=== PATIENT | female | born 1990 | race African-American/Black ===

== ENCOUNTER 2016-10-29 12:09 | Emergency (ER) | payer SELFPAY ==
[~2016-10-29] VITALS: Ht 157.5 cm; Wt 112.0 kg
[~2016-10-29 12:09] MED LIST: CIPR500T4 PO; GUAI100S6 PO; PRED20 PO; VENTAER INH
[2016-10-29 12:12] VITALS: BP 187/96; PULSE 49; RESP 20; TEMP 98; O2SAT 100
--- NOTE | 2016-10-29 12:19 | PD ---
Physical Exam Date Seen by Provider: October 29, 2016 Time Seen by Provider: 12:16 Narrative 25 yo female here for SOB. History of chronic asthma. Chest pain for the past few days, pain is pressure like and gets worst with breathing. Feeling hot with body aches. No N/V/D. Going on for a few days. Congestion and cough. Pain is 10/ 10. No abdominal pain. No . Vitals sign stable. Patient awaiting bed placement. Data Data Last Documented VS Vital Signs Date Time Temp Pulse Resp B/P Pulse Ox O2 Delivery O2 Flow Rate FiO2 10/29/16 12:12 98.0 49 20 187/96 100 MDM Medical Record Reviewed: Yes Supervised Visit with ROSE: No Gentry Long October 29, 2016 12:19
[2016-10-29] MEDS ORDERED: VENTAER INH ×2 (12:31→14:43)
--- NOTE | 2016-10-29 13:01 | PD ---
HPI Chief Complaint: Respiratory Symptoms Time Seen by Provider: 13:01 Travel History International Travel<30 days: No Contact w/Intl Traveler<30days: No Traveled to known affect area: No History of Present Illness HPI 25-year-old Afro-[place]aysian female presents the emergency department with increased productive cough, shortness of breath, and wheezing. Patient has history of asthma for which she has gone untreated secondary to insurance issues. Patient has not had any inhaler for several months. She states she has normal coughing and shortness of breath but today was much worse which brought her to the emergency department. She denies specific fever but does have chills. She has no headache, sore throat, but has had some ear pain today. No nausea, vomiting, or diarrhea. She does not have a local PCP or handkerchief cutter. She is allergic to Benadryl. PFSH Past Medical History Hx Anticoagulant Therapy: No Asthma: Yes Cardiovascular Problems: Yes (htn; [place]) Chemotherapy: No Cerebrovascular Accident: Yes Diabetes: No Respiratory: Yes (asthma) Tetanus Vaccination: > 5 Years Influenza Vaccination: No ?: Not LMP: 10/06/16 Past Surgical History Surgical History: No Previous Surgery Hysterectomy: No Social History Alcohol Use: Yes (occasional) Tobacco Use: Yes Substance Use: Yes (marijuana) Allergies-Medications (Allergen,Severity, Reaction): Coded Allergies: Benadryl (Verified Allergy, Severe, swelling, 10/29/16) Reported Meds & Prescriptions Reported Meds & Active Scripts Active Albuterol Neb (Albuterol Sulfate) 2.5 Mg/3 Ml Neb 2.5 Mg NEB QID NEB Prednisone 20 Mg Tab 20 Mg PO BID Azithromycin 250 Mg Tab 250 Mg PO DIRECTED Take 2 tabs (500 mg) on day 1 then 1 tab daily x 4 days. Ventolin Hfa 18 GM Inh (Albuterol Sulfate) 90 Mcg/Act Aer 2 Puff INH Q4-6H PRN Reported Ventolin Hfa 18 GM Inh (Albuterol Sulfate) 90 Mcg/Act Aer 2 Puff INH Q4H PRN Review of Systems Except as stated in HPI: all other systems reviewed are Neg General / Constitutional: Positive: Chills, No: Fever Eyes: No: Visual changes HENT: No: Headaches Cardiovascular: No: Chest Pain or Discomfort Respiratory: Positive: Cough, Shortness of Breath, Wheezing, No: Sneezing, Orthopnea, Hemoptysis, Night Sweats, Pleuritic Pain Gastrointestinal: No: Nausea, Vomiting, Diarrhea, Abdominal Pain Genitourinary: No: Dysuria Musculoskeletal: No: Pain Skin: No Rash Neurologic: No: Weakness Psychiatric: No: Depression Endocrine: No: Polydipsia Hematologic/Lymphatic: No: Easy Bruising Physical Exam Narrative GENERAL: Patient appears in mild to moderate distress. SKIN: Warm and dry. Normal color. Normal turgor. HEAD: Atraumatic. Normocephalic. EYES: Pupils equal and round. No scleral icterus. No injection or drainage. ENT: No nasal bleeding or discharge. Mucous membranes pink and moist. TMs clear bilaterally. No significant sinus tenderness to palpation. Pharynx is unremarkable. No postnasal drip. NECK: Trachea midline. Supple and nontender. CARDIOVASCULAR: Regular rate and rhythm. No murmurs gallops or rubs. RESPIRATORY: No accessory muscle use. Moderate Diffuse wheezes and rales to auscultation. Breath sounds equal bilaterally. O2 sats 100% on room air. GASTROINTESTINAL: Abdomen soft, non-tender, nondistended. Hepatic and splenic margins not palpable. MUSCULOSKELETAL: Extremities without clubbing, cyanosis, or edema. No obvious deformities. NEUROLOGICAL: Awake and alert. No obvious cranial nerve deficits. Motor grossly within normal limits. Five out of 5 muscle strength in the arms and legs. Normal speech. PSYCHIATRIC: Appropriate mood and affect; insight and judgment normal. Data Data Last Documented VS Vital Signs Date Time Temp Pulse Resp B/P Pulse Ox O2 Delivery O2 Flow Rate FiO2 10/29/16 14:50 97.8 56 18 150/78 99 10/29/16 13:20 Room Air Orders Chest, Pa & Lat (10/29/16 ) Influenzae A/B Antigen (10/29/16 12:45) Complete Blood Count With Diff (10/29/16 13:18) Comprehensive Metabolic Panel (10/29/16 13:18) Ecg Monitoring (10/29/16 13:18) Iv Access Insert/Monitor (10/29/16 13:18) Oximetry (10/29/16 13:18) Oxygen Administration (10/29/16 13:18) Methylprednisolone So Succ Inj (Solumedr (10/29/16 13:30) Albuterol-Ipratropium Neb (Duoneb Neb) (10/29/16 13:30) Sodium Chloride 0.9% Flush (Ns Flush) (10/29/16 13:30) Azithromycin (Zithromax) (10/29/16 13:30) Acetaminophen (Tylenol) (10/29/16 14:15) Labs Laboratory Tests Test 10/29/16 10/29/16 13:00 13:10 Sodium Level 140 MEQ/L Potassium Level 4.0 MEQ/L Chloride Level 105 MEQ/L Carbon Dioxide Level 26.7 MEQ/L Anion Gap 8 MEQ/L Blood Urea Nitrogen 6 MG/DL Creatinine 0.83 MG/DL Estimat Glomerular Filtration 102 ML/MIN Rate Random Glucose 106 MG/DL Calcium Level 9.0 MG/DL Total Bilirubin 0.5 MG/DL Aspartate Amino Transf 12 U/L (AST/SGOT) Alanine Aminotransferase 14 U/L (ALT/SGPT) Alkaline Phosphatase 65 U/L Total Protein 7.5 GM/DL Albumin 3.4 GM/DL White Blood Count 7.4 TH/MM3 Red Blood Count 4.92 MIL/MM3 Hemoglobin 13.9 GM/DL Hematocrit 43.9 % Mean Corpuscular Volume 89.2 FL Mean Corpuscular Hemoglobin 28.3 PG Mean Corpuscular Hemoglobin 31.7 % Concent Red Cell Distribution Width 16.3 % Platelet Count 176 TH/MM3 Mean Platelet Volume 10.9 FL Neutrophils (%) (Auto) 75.5 % Lymphocytes (%) (Auto) 18.1 % Monocytes (%) (Auto) 2.7 % Eosinophils (%) (Auto) 3.3 % Basophils (%) (Auto) 0.4 % Neutrophils # (Auto) 5.6 TH/MM3 Lymphocytes # (Auto) 1.4 TH/MM3 Monocytes # (Auto) 0.2 TH/MM3 Eosinophils # (Auto) 0.2 TH/MM3 Basophils # (Auto) 0.0 TH/MM3 CBC Comment DIFF FINAL Differential Comment MDM Medical Decision Making Medical Screen Exam Complete: Yes Emergency Medical Condition: Yes Medical Record Reviewed: Yes Differential Diagnosis Influenza. Bronchitis. Pneumonia. Asthma with acute exacerbation. Narrative Course Patient is medically stable at time of exam. Chest x-ray shows no acute process per radiologist. Rapid Influenza is ordered in triage. IV access is obtained patient is given 125 mg Solu-Medrol IV as well as 500 mg azithromycin by mouth. DuoNeb 5 minutes 3. Patient is given 1000 mg acetaminophen by mouth. Rapid influenza is negative. 1440 hrs. patient is reevaluated felt to be much improved with improved breath sounds, O2 sat is 94% on room air. Patient is given a prescription for a nebulizer with equipment. Patient is given a prescription for albuterol for her nebulizer every 4-6 hours when necessary. Patient also given a prescription for albuterol metered-dose inhaler as directed. Patient will be continued on azithromycin Dosepak as prescribed. Patient will be continued on prednisone 20 mg twice a day for 5 days. Patient is given information about local primary care physician. Patient understands the risk of untreated asthma, and will return to emergency Department with worsening symptoms as needed. Diagnosis Primary Impression: Asthma with acute exacerbation in adult Referrals: [facility] Patient Instructions: Asthma (ED), General Instructions Additional Instructions: Patient is given a prescription for a nebulizer with equipment. Patient is given a prescription for albuterol for her nebulizer every 4-6 hours when necessary. Patient also given a prescription for albuterol metered-dose inhaler as directed. Patient will be continued on azithromycin Dosepak as prescribed. Patient will be continued on prednisone 20 mg twice a day for 5 days. Patient is given information about local primary care physician. Patient understands the risk of untreated asthma, and will return to emergency Department with worsening symptoms as needed. Med/Other Pt SpecificInfo: Prescription(s) given Scripts Albuterol Neb 2.5 Mg/3 Ml Neb2.5 Mg NEB QID NEB #60 NEBULE Ref 2 Prov:Angie Welch MD 10/29/16 Prednisone 20 Mg Tab20 Mg PO BID #10 TAB Prov:Angie Welch MD 10/29/16 Azithromycin 250 Mg [id number] Mg PO DIRECTED #6 TAB Take 2 tabs (500 mg) on day 1 then 1 tab daily x 4 days. Prov:Angie Welch MD 10/29/16 Albuterol 18 GM Inh (Ventolin Hfa 18 GM Inh)90 Mcg/Act Aer2 Puff INH Q4-6H PRN ( SHORTNESS OF BREATH) #1 INHALER Prov:Angie Welch MD 10/29/16 Disposition: 01 DISCHARGE HOME Condition: Stable Elian Rojas October 29, 2016 13:01
--- NOTE | 2016-10-29 13:15 | RADRPT ---
EXAM DATE/TIME: 10/29/2016 13:01 [facility] COMPARISON: No previous studies available for comparison. INDICATIONS : Short of breath, tightness in chest, cough. MEDICAL HISTORY : None. SURGICAL HISTORY : None. ENCOUNTER: Initial ACUITY: 1 day PAIN SCORE: 10/10 LOCATION: Bilateral chest FINDINGS: PA and lateral views of the chest demonstrate the lungs to be symmetrically aerated without evidence of mass, infiltrate or effusion. The cardiomediastinal contours are unremarkable. Osseous structure s are intact. CONCLUSION: No acute intrathoracic disease. Nicolas Burroughs MD on October 29, 2016 at 13:13 Board Certified Radiologist. This report was verified electronically.
[2016-10-29 13:20] VITALS: PULSE 53; RESP 20; O2SAT 100
[2016-10-29] MEDS ORDERED: SODIUM CHLORIDE 0.9% FLUSH 10 ML FLUSH IVF PRN (13:30)
[2016-10-29] MEDS ORDERED: AZITHROMYCIN 250 MG TAB PO SCH (13:30)
[2016-10-29] MEDS ORDERED: methylPREDNISolone SOD SUCC 125 MG/2 ML VIAL IVP ONE (13:30)
[2016-10-29 13:43] LABS: AUTOMATED NEUTROPHIL # 5.6 TH/MM3 (1.8-7.7); BASOPHIL % 0.4 % (0.0-2.0); EOSINOPHIL # 0.2 TH/MM3 (0-0.4); EOSINOPHIL % 3.3 % (0.0-4.0); HEMATOCRIT 43.9 % (35.0-46.0); HEMO FLAGS DIFF FINAL; LYMPH % 18.1 % (9.0-44.0); LYMPHOCYTE # 1.4 TH/MM3 (1.0-4.8); MEAN CELL VOLUME 89.2 FL (80.0-100.0); MEAN CORPUSCULAR HEMOGLOBIN 28.3 PG (27.0-34.0); MEAN CORPUSCULAR HGB CONC 31.7 % (32.0-36.0); MONO % 2.7 % (0.0-8.0); NEUT % 75.5 % (16.0-70.0); PLATELET COUNT 176 TH/MM3 (150-450); RED BLOOD COUNT 4.92 MIL/MM3 (4.00-5.30); RED CELL DISTRIBUTION WIDTH 16.3 % (11.6-17.2); WHITE BLOOD COUNT 7.4 TH/MM3 (4.0-11.0)
[2016-10-29] MEDS: RESP: ALBUTEROL 2.5 MG/IPRATROPIUM 0.5 MG NEB (SCH) INH ×2 (13:43→13:44)
[2016-10-29 14:01] LABS: ALT (GPT) 14 U/L (10-53); ANION GAP 8 MEQ/L (5-15); AST (GOT) 12 U/L (15-37); BICARBONATE 26.7 MEQ/L (21.0-32.0); BLOOD UREA NITROGEN 6 MG/DL (7-18); CHLORIDE 105 MEQ/L (98-107); GLOMERULAR FILTRATION RATE 102 ML/MIN (>89); SODIUM (NA) 140 MEQ/L (136-145)
[2016-10-29 14:04] LABS: ALKALINE PHOSPHATASE 65 U/L (45-117); TOTAL BILIRUBIN ADULT 0.5 MG/DL (0.2-1.0)
[2016-10-29] MEDS ORDERED: ACETAMINOPHEN 500 MG CPLT PO ONE (14:15)
[2016-10-29] MEDS ORDERED: PRED20 PO (14:43)
[2016-10-29] MEDS ORDERED: ALBU0.08 NEB (14:43)
[2016-10-29] MEDS ORDERED: AZIT250T3 PO (14:43)
[2016-10-29 14:50] VITALS: BP 150/78; TEMP 97.8
== END 2016-10-29 14:50 | disposition home or self-care (01) ==
LOC: NEPC 12:09
DX: J45.901 Unspecified asthma with (acute) exacerbation (principal); R68.83 Chills (without fever); H92.09 Otalgia, unspecified ear; I10 Essential (primary) hypertension; Z72.0 Tobacco use; Z86.79 Personal history of other diseases of the circulatory system; Z87.09 Personal history of other diseases of the respiratory system
CPT/HCPCS: 71020; 80053; 85025; 87804; 94640; 94664; 96374; 99284; J2930

== ENCOUNTER 2017-02-24 18:28 | Emergency (ER) | payer SELFPAY ==
[~2017-02-24] VITALS: Ht 160 cm; Wt 118.0 kg
[~2017-02-24 18:28] MED LIST changes: +ALBU0.08 NEB; +AZIT250T3 PO; -CIPR500T4 PO; -GUAI100S6 PO
[2017-02-24 18:29] VITALS: BP 174/104; PULSE 89; RESP 15; TEMP 98.4; O2SAT 98
--- NOTE | 2017-02-24 18:54 | PD ---
Physical Exam Date Seen by Provider: Feb 24, 2017 Time Seen by Provider: 18:53 Narrative 26 yo female here for ichy rash all over. Especially extremities. Bumps that are itchy. Some bleeding from scratching. No chest pain or SOB. Here to get them checked out. Vitals stable in triage. Awaiting bed placement. Data Data Last Documented VS Vital Signs Date Time Temp Pulse Resp B/P (MAP) Pulse Ox O2 Delivery O2 Flow Rate FiO2 02/24/17 18:29 98.4 89 15 174/104 (127) 98 MDM Medical Record Reviewed: Yes Supervised Visit with ROSE: No Gentry Long Feb 24, 2017 18:54
--- NOTE | 2017-02-24 19:11 | PD ---
HPI Chief Complaint: Skin Problem Time Seen by Provider: 19:08 Travel History International Travel<30 days: No Contact w/Intl Traveler<30days: No Traveled to known affect area: No History of Present Illness HPI 26 year-old female presents to emergency department for evaluation of a pruritic bumps on her upper extremities and lower extremities. Patient reports she noticed them after sleeping on the couch at her mom's house. Denies any other new exposures. No recent illnesses, fever, chills. Has not attempted anything for the itching. Has no other symptoms to report. History Past Medical Histgory Hx Chemotherapy: No Social History Alcohol Use: Yes (occasional) Tobacco Use: Yes Allergies-Medications (Allergen,Severity, Reaction): Coded Allergies: diphenhydramine (Unverified Allergy, Severe, swelling, 02/24/17) Reported Meds & Prescriptions Reported Meds & Active Scripts Active Albuterol Neb (Albuterol Sulfate) 2.5 Mg/3 Ml Neb 2.5 Mg NEB QID NEB Prednisone 20 Mg Tab 20 Mg PO BID Azithromycin 250 Mg Tab 250 Mg PO DIRECTED Take 2 tabs (500 mg) on day 1 then 1 tab daily x 4 days. Ventolin Hfa 18 GM Inh (Albuterol Sulfate) 90 Mcg/Act Aer 2 Puff INH Q4-6H PRN Reported Ventolin Hfa 18 GM Inh (Albuterol Sulfate) 90 Mcg/Act Aer 2 Puff INH Q4H PRN Review of Systems Except as stated in HPI: all other systems reviewed are Neg Physical Exam Narrative GENERAL: Well-nourished, well-developed female patient, in no acute distress SKIN: Focused skin assessment warm/dry. There are centimeter in diameter raised wheals, some in linear patterns on the upper extremities and lower extremities. There is nothing where the patient's clothes have covered her. HEAD: Normocephalic. EYES: No scleral icterus. No injection or drainage. ENT: Mucosa pink and moist. No erythema or exudates. No uvular edema. No uvular , palatal, or tonsillar deviation. Airway patent. Nasal turbinates appear normal without nasal blood, purulent drainage or septal hematoma. NECK: Supple, trachea midline. No JVD or lymphadenopathy. CARDIOVASCULAR: Regular rate and rhythm without murmurs, gallops, or rubs. RESPIRATORY: Breath sounds equal bilaterally. No accessory muscle use. Data Data Last Documented VS Vital Signs Date Time Temp Pulse Resp B/P (MAP) Pulse Ox O2 Delivery O2 Flow Rate FiO2 02/24/17 18:29 98.4 89 15 174/104 (127) 98 MDM Medical Screen Exam Complete: Yes Emergency Medical Condition: No Differential Diagnosis bed bug bites Narrative Course 26 year-old female presents to emergency department for evaluation. Physical exam and history are consistent with bedbug bites. I have encouraged the patient to take [id number] antihistamine. She appears well. At this time there are no urgent or emergent needs for medical intervention identified. A medical screening exam was performed: At the time of evaluation the presenting medical condition was determined not to be of an emergent nature. The patient was given the option of receiving additional care, but declined. Patient was given options for additional community resources from which to obtain care. The Patient Has Been advised to seek medical attention for their presenting complaint. The patient has been advised to return to the ER at any time if an emergent condition develops. Primary Impression: Encounter for medical screening examination Condition: Stable Xuan Stahl Feb 24, 2017 19:11
== END 2017-02-24 19:22 | disposition left against medical advice (07) ==
LOC: NEPK 18:28
DX: R21 Rash and other nonspecific skin eruption (principal)
CPT/HCPCS: 99281

== ENCOUNTER 2017-06-24 17:38 | Emergency (ER) | payer SELFPAY ==
[~2017-06-24] VITALS: Ht 157.5 cm; Wt 122.7 kg
[2017-06-24] MEDS ORDERED: IOHEXOL 350 MG/ML 10 ML VIAL (for RAD DIAG) IVCONTRAST ONE (17:39)
[2017-06-24 17:40] VITALS: BP 175/104; PULSE 50; RESP 17; TEMP 98.1; O2SAT 99
[2017-06-24 19:00] LABS: AUTOMATED NEUTROPHIL # 3.9 TH/MM3 (1.8-7.7); BASOPHIL # 0.1 TH/MM3 (0-0.2); EOSINOPHIL # 0.3 TH/MM3 (0-0.4); EOSINOPHIL % 4.6 % (0.0-4.0); HEMATOCRIT 41.7 % (35.0-46.0); HEMOGLOBIN 14.1 GM/DL (11.6-15.3); LYMPH % 33.8 % (9.0-44.0); LYMPHOCYTE # 2.4 TH/MM3 (1.0-4.8); MEAN CELL VOLUME 88.5 FL (80.0-100.0); MEAN CORPUSCULAR HEMOGLOBIN 29.9 PG (27.0-34.0); MEAN CORPUSCULAR HGB CONC 33.7 % (32.0-36.0); MEAN PLATELET VOLUME 9.7 FL (7.0-11.0); MONO % 5.4 % (0.0-8.0); MONOCYTE # 0.4 TH/MM3 (0-0.9); NEUT % 55.2 % (16.0-70.0); PLATELET COUNT 181 TH/MM3 (150-450); RED BLOOD COUNT 4.71 MIL/MM3 (4.00-5.30); RED CELL DISTRIBUTION WIDTH 15.1 % (11.6-17.2)
[2017-06-24 19:06] LABS: AMORPHOUS SEDIMENT, URINE RARE; BACTERIA, URINE MOD /hpf; BILIRUBIN, URINE NEG (NEG); BLOOD, URINE LARGE (NEG); GLUCOSE,URINE NEG (NEG); KETONE, URINE NEG (NEG); MUCUS URINE FEW /lpf (OCC); NITRITE,URINE NEG (NEG); SQUAMOUS EPITHELIAL CELL URINE 23 /hpf (0-5); URINE COLOR LIGHT-RED (YELLW/STRAW); URINE LEUKOCYTE ESTERASE LARGE (NEG)
[2017-06-24 19:22] LABS: ALBUMIN 3.7 GM/DL (3.4-5.0); AST (GOT) 10 U/L (15-37); BICARBONATE 25.6 MEQ/L (21.0-32.0); BLOOD UREA NITROGEN 6 MG/DL (7-18); CALCIUM 8.9 MG/DL (8.5-10.1); CHLORIDE 107 MEQ/L (98-107); CREATININE 0.84 MG/DL (0.50-1.00); GLOMERULAR FILTRATION RATE 100 ML/MIN (>89); GLUCOSE,RANDOM 89 MG/DL (74-106); LIPASE 84 U/L (73-393); SODIUM (NA) 138 MEQ/L (136-145)
[2017-06-24 19:23] LABS: ALT (GPT) 12 U/L (10-53)
[2017-06-24 19:25] LABS: ALKALINE PHOSPHATASE 67 U/L (45-117); TOTAL BILIRUBIN ADULT 1.2 MG/DL (0.2-1.0); TOTAL PROTEIN 7.9 GM/DL (6.4-8.2)
[2017-06-24] MEDS ORDERED: KETOROLAC TROMETHAMINE 30 MG/ML (IVP) VIAL IV PUSH ONE (19:30)
[2017-06-24] MEDS ORDERED: SODIUM CHLOR 0.9% 1000 ML INJ 1,000 ML IV ONE (19:30)
[2017-06-24] MEDS ORDERED: ONDANSETRON HCL 4 MG/2 ML VIAL IV PUSH ONE (19:30)
[2017-06-24] MEDS ORDERED: cefTRIAXone INJ 1,000 MG in SODIUM CHLORIDE 0.9% INJ 100 ML IV ONE (19:30)
--- NOTE | 2017-06-24 19:49 | PD ---
HPI Chief Complaint: Abdominal Pain Time Seen by Provider: 19:08 Travel History International Travel<30 days: No Contact w/Intl Traveler<30days: No Traveled to known affect area: No History of Present Illness HPI Patient is a 26-year-old female presenting to emergency room for evaluation of abdominal pain, vomiting, headache. Patient states it started at 5:00 this morning getting progressively worse throughout the day. She reports vomiting last before she came to the emergency department. She also reports urinary frequency but denies any dysuria. Patient states her pain is 8 of 10 states that sharp and aching. There are no alleviating factors. She reports a history of the same but has not been evaluated for in the past. Patient also reports chest congestion, she has a history of asthma and has not been using her inhalers. She denies any shortness of breath, chest pain, fever, chills. PFSH Past Medical History Hx Anticoagulant Therapy: No Asthma: Yes Cardiovascular Problems: Yes (htn; [place]) Chemotherapy: No Cerebrovascular Accident: Yes Diabetes: No Respiratory: Yes (asthma) ?: Unknown LMP: on now Past Surgical History Surgical History: No Previous Surgery Hysterectomy: No Social History Alcohol Use: Yes (occasional) Tobacco Use: Yes (PACK A DAY) Substance Use: Yes (marijuana) Allergies-Medications (Allergen,Severity, Reaction): Coded Allergies: diphenhydramine (Unverified Allergy, Severe, swelling, 02/24/17) Reported Meds & Prescriptions Reported Meds & Active Scripts Active Albuterol Neb (Albuterol Sulfate) 2.5 Mg/3 Ml Neb 2.5 Mg NEB QID NEB Prednisone 20 Mg Tab 20 Mg PO BID Azithromycin 250 Mg Tab 250 Mg PO DIRECTED Take 2 tabs (500 mg) on day 1 then 1 tab daily x 4 days. Ventolin Hfa 18 GM Inh (Albuterol Sulfate) 90 Mcg/Act Aer 2 Puff INH Q4-6H PRN Reported Ventolin Hfa 18 GM Inh (Albuterol Sulfate) 90 Mcg/Act Aer 2 Puff INH Q4H PRN Review of Systems Except as stated in HPI: all other systems reviewed are Neg General / Constitutional: No: Fever HENT: Positive: Headaches Cardiovascular: No: Chest Pain or Discomfort Respiratory: Positive: Cough, Wheezing Gastrointestinal: Positive: Nausea, Vomiting, Abdominal Pain Genitourinary: Positive: Frequency, No: Pelvic Pain, Discharge Musculoskeletal: No: Myalgias Physical Exam Narrative GENERAL: Well-developed, well-nourished, alert female. Resting comfortably in no acute distress. SKIN: Warm and dry. HEAD: Atraumatic. Normocephalic. EYES: Pupils equal and round. No scleral icterus. No injection or drainage. ENT: No nasal bleeding or discharge. Mucous membranes pink and moist. NECK: Trachea midline. No JVD. CARDIOVASCULAR: Regular rate and rhythm. RESPIRATORY: No accessory muscle use. Clear to auscultation. Breath sounds equal bilaterally. GASTROINTESTINAL: Abdomen soft, it palpation in left lower quadrant, nondistended. Hepatic and splenic margins not palpable. Positive guarding, no rebound. MUSCULOSKELETAL: Extremities without clubbing, cyanosis, or edema. No obvious deformities. NEUROLOGICAL: Awake and alert. No obvious cranial nerve deficits. Motor grossly within normal limits. Five out of 5 muscle strength in the arms and legs. Normal speech. PSYCHIATRIC: Appropriate mood and affect; insight and judgment normal. Data Data Last Documented VS Vital Signs Date Time Temp Pulse Resp B/P (MAP) Pulse Ox O2 Delivery O2 Flow Rate FiO2 06/24/17 17:40 98.1 50 17 175/104 (127) 99 Room Air Orders Orders Complete Blood Count With Diff (06/24/17 17:50) Comprehensive Metabolic Panel (06/24/17 17:50) Lipase (06/24/17 17:50) Urinalysis - C+S If Indicated (06/24/17 17:50) Ed Urine Pregnancytest Poc (06/24/17 17:50) Urine Culture (06/24/17 18:55) Chest, Single Ap (06/24/17 ) Ct Abd/Pel W Iv Contrast(Rout) (06/24/17 ) Ketorolac Inj (Toradol Inj) (06/24/17 19:30) Ondansetron Inj (Zofran Inj) (06/24/17 19:30) Sodium Chlor 0.9% 1000 Ml Inj (Ns 1000 M (06/24/17 19:30) Ceftriaxone Inj (Rocephin Inj) (06/24/17 19:30) Iohexol 350 Inj (Omnipaque 350 Inj) (06/24/17 17:39) Labs Laboratory Tests Test 06/24/17 18:55 White Blood Count 7.0 TH/MM3 Red Blood Count 4.71 MIL/MM3 Hemoglobin 14.1 GM/DL Hematocrit 41.7 % Mean Corpuscular Volume 88.5 FL Mean Corpuscular Hemoglobin 29.9 PG Mean Corpuscular Hemoglobin Concent 33.7 % Red Cell Distribution Width 15.1 % Platelet Count 181 TH/MM3 Mean Platelet Volume 9.7 FL Neutrophils (%) (Auto) 55.2 % Lymphocytes (%) (Auto) 33.8 % Monocytes (%) (Auto) 5.4 % Eosinophils (%) (Auto) 4.6 % Basophils (%) (Auto) 1.0 % Neutrophils # (Auto) 3.9 TH/MM3 Lymphocytes # (Auto) 2.4 TH/MM3 Monocytes # (Auto) 0.4 TH/MM3 Eosinophils # (Auto) 0.3 TH/MM3 Basophils # (Auto) 0.1 TH/MM3 CBC Comment DIFF FINAL Differential Comment Urine Color LIGHT-RED Urine Turbidity HAZY Urine pH 6.0 Urine Specific [place] 1.016 Urine Protein 30 mg/dL Urine Glucose (UA) NEG mg/dL Urine Ketones NEG mg/dL Urine Occult Blood LARGE Urine Nitrite NEG Urine Bilirubin NEG Urine Urobilinogen LESS THAN 2.0 MG/DL Urine Leukocyte Esterase LARGE Urine RBC 10 /hpf Urine WBC 79 /hpf Urine Squamous Epithelial Cells 23 /hpf Urine Amorphous Sediment RARE Urine Bacteria MOD /hpf Urine Mucus FEW /lpf Microscopic Urinalysis Comment CULTURE INDICATED Blood Urea Nitrogen 6 MG/DL Creatinine 0.84 MG/DL Random Glucose 89 MG/DL Total Protein 7.9 GM/DL Albumin 3.7 GM/DL Calcium Level 8.9 MG/DL Alkaline Phosphatase 67 U/L Aspartate Amino Transf (AST/SGOT) 10 U/L Alanine Aminotransferase (ALT/SGPT) 12 U/L Total Bilirubin 1.2 MG/DL Sodium Level 138 MEQ/L Potassium Level 3.5 MEQ/L Chloride Level 107 MEQ/L Carbon Dioxide Level 25.6 MEQ/L Anion Gap 5 MEQ/L Estimat Glomerular Filtration Rate 100 ML/MIN Lipase 84 U/L [facility] Medical Decision Making Medical Screen Exam Complete: Yes Emergency Medical Condition: Yes Interpretation(s) Last Impressions Chest X-Ray 06/24/17 0000 Signed Impressions: Service Date/Time: Saturday, June 24, 2017 19:37 - CONCLUSION: 1. Cardiomegaly with minimal subsegmental opacity right lung base that may represent atelectasis. Peribronchial thickening present. Fuentes Quintero MD Abdomen/Pelvis CT 06/24/17 0000 Signed Impressions: Service Date/Time: Saturday, June 24, 2017 19:28 - CONCLUSION: 1. No acute findings on abdomen and pelvic CT. Minimal linear scarring right lung base. Fuentes Quintero MD Laboratory Tests Test 06/24/17 18:55 White Blood Count 7.0 TH/MM3 Red Blood Count 4.71 MIL/MM3 Hemoglobin 14.1 GM/DL Hematocrit 41.7 % Mean Corpuscular Volume 88.5 FL Mean Corpuscular Hemoglobin 29.9 PG Mean Corpuscular Hemoglobin Concent 33.7 % Red Cell Distribution Width 15.1 % Platelet Count 181 TH/MM3 Mean Platelet Volume 9.7 FL Neutrophils (%) (Auto) 55.2 % Lymphocytes (%) (Auto) 33.8 % Monocytes (%) (Auto) 5.4 % Eosinophils (%) (Auto) 4.6 % Basophils (%) (Auto) 1.0 % Neutrophils # (Auto) 3.9 TH/MM3 Lymphocytes # (Auto) 2.4 TH/MM3 Monocytes # (Auto) 0.4 TH/MM3 Eosinophils # (Auto) 0.3 TH/MM3 Basophils # (Auto) 0.1 TH/MM3 CBC Comment DIFF FINAL Differential Comment Urine Color LIGHT-RED Urine Turbidity HAZY Urine pH 6.0 Urine Specific [place] 1.016 Urine Protein 30 mg/dL Urine Glucose (UA) NEG mg/dL Urine Ketones NEG mg/dL Urine Occult Blood LARGE Urine Nitrite NEG Urine Bilirubin NEG Urine Urobilinogen LESS THAN 2.0 MG/DL Urine Leukocyte Esterase LARGE Urine RBC 10 /hpf Urine WBC 79 /hpf Urine Squamous Epithelial Cells 23 /hpf Urine Amorphous Sediment RARE Urine Bacteria MOD /hpf Urine Mucus FEW /lpf Microscopic Urinalysis Comment CULTURE INDICATED Blood Urea Nitrogen 6 MG/DL Creatinine 0.84 MG/DL Random Glucose 89 MG/DL Total Protein 7.9 GM/DL Albumin 3.7 GM/DL Calcium Level 8.9 MG/DL Alkaline Phosphatase 67 U/L Aspartate Amino Transf (AST/SGOT) 10 U/L Alanine Aminotransferase (ALT/SGPT) 12 U/L Total Bilirubin 1.2 MG/DL Sodium Level 138 MEQ/L Potassium Level 3.5 MEQ/L Chloride Level 107 MEQ/L Carbon Dioxide Level 25.6 MEQ/L Anion Gap 5 MEQ/L Estimat Glomerular Filtration Rate 100 ML/MIN Lipase 84 U/L Vital Signs Date Time Temp Pulse Resp B/P (MAP) Pulse Ox O2 Delivery O2 Flow Rate FiO2 06/24/17 17:40 98.1 50 17 175/104 (127) 99 Room Air Differential Diagnosis Ovarian cysts versus diverticulitis versus UTI versus kidney stone versus other Narrative Course 26-year-old female presenting to emergency department for evaluation of chest congestion as well as abdominal pain. Patient was mildly hypertensive on arrival, her vital signs were otherwise stable. Patient's labs were ordered in triage. Urine was negative. CBC with no acute findings chemistry is unremarkable. Urinalysis is consistent with a urinary tract infection, reflex urine culture is pending. Patient was given Rocephin 1 g IV 1 dose. Additionally she was given 1 L of IV fluids and Toradol for pain. Chest x-ray shows cardiomegaly with minimal subsegmental opacity in the right lung base with peribronchial thickening. CT scan of the abdomen and pelvis which was read by the radiologist shows no acute findings and discussed findings with patient. Patient will be treated for pneumonia as well as a urinary tract infection. She was advised that her blood pressure was elevated in the emergency department today. She denies any history of any anti-hypertensive medications. Is encouraged follow-up with her primary doctor for ongoing healthcare and evaluation. She was advised to monitor her blood pressure home. She was encouraged return to emergency department immediately for any new or worsening symptoms. Patient and Father verbalized understanding of these instructions. Patient is stable for discharge. Diagnosis Primary Impression: Pneumonia Qualified Codes: J18.1 - Lobar pneumonia, unspecified organism Additional Impressions: Urinary tract infection Qualified Codes: N39.0 - Urinary tract infection, site not specified; R31.9 - Hematuria, unspecified Elevated blood pressure reading Referrals: [facility] 1 week Patient Instructions: General Instructions, Hypertension (ED), Pneumonia (DC), Urinary Tract Infection in Women (ED) Additional Instructions: Her blood pressure was elevated in the emergency department today, follow-up with her primary doctor Complete full course of antibiotics as prescribed Continue home inhalers as prescribed Return to emergency department for any new or worsening symptoms Med/Other Pt SpecificInfo: Prescription(s) given Scripts Amoxicillin (Amoxicillin) 875 Mg Tab 875 MG PO BID for Infection, #20 TAB 0 Refills Prov: Minoo Quiles 06/24/17 Azithromycin (Azithromycin) 250 Mg Tab 250 MG PO DIRECTED for Infection, #6 TAB 0 Refills Take 2 tabs (500 mg) on day 1 then 1 tab daily x 4 days. Prov: Minoo Quiles 06/24/17 Disposition: 01 DISCHARGE HOME Minoo Quiles Jun 24, 2017 19:49
--- NOTE | 2017-06-24 19:53 | RADRPT ---
EXAM DATE/TIME: 06/24/2017 19:37 [facility] COMPARISON: No previous studies available for comparison. INDICATIONS : Wheezing. MEDICAL HISTORY : None. SURGICAL HISTORY : None. ENCOUNTER: Initial ACUITY: 1 day PAIN SCORE: 6/10 LOCATION: Bilateral chest FINDINGS: A single view of the chest demonstrates subsegmental basilar airspace disease on the right. Peribronc hial thickening present. No dense consolidation. Cardiomegaly. No effusion. No pneumothorax. CONCLUSION: 1. Cardiomegaly with minimal subsegmental opacity right lung base that may represent atelectasis. Per ibronchial thickening present. Fuentes Quintero MD on June 24, 2017 at 19:50 Board Certified Radiologist. This report was verified electronically.
--- NOTE | 2017-06-24 19:58 | RADRPT ---
EXAM DATE/TIME: 06/24/2017 19:28 [facility] COMPARISON: No previous studies available for comparison. INDICATIONS : Patient complains of vomiting and abdominal pain. IV CONTRAST: 22.38 cc Omnipaque 350 (iohexol) IV ORAL CONTRAST: No oral contrast ingested. RADIATION DOSE: \CTDIvol (mGy) MEDICAL HISTORY : Hypertension. asthma SURGICAL HISTORY : None. ENCOUNTER: Initial ACUITY: 1 day PAIN SCALE: 10/10 LOCATION: abdomen TECHNIQUE: Volumetric scanning of the abdomen and pelvis was performed. Using automated exposure control and ad justment of the mA and/or kV according to patient size, radiation dose was kept as low as reasonably achievable to obtain optimal diagnostic quality images. DICOM format image data is available electro nically for review and comparison. FINDINGS: Limited bases are clear. Minimal linear scarring right middle lobe. No acute findings in the liver, spleen, adrenals, kidneys or pancreas. No calcified gallstones or donis iary ductal dilatation. There is no free fluid. No bowel obstruction. No adenopathy. CONCLUSION: 1. No acute findings on abdomen and pelvic CT. Minimal linear scarring right lung base. Fuentes Quintero MD on June 24, 2017 at 19:52 Board Certified Radiologist. This report was verified electronically.
[2017-06-24] MEDS ORDERED: AZIT250T3 PO (20:22)
[2017-06-24] MEDS ORDERED: AMOX875T PO (20:22)
== END 2017-06-24 21:01 | disposition home or self-care (01) ==
LOC: NEPD 17:38
DX: J18.1 Lobar pneumonia, unspecified organism (principal); N39.0 Urinary tract infection, site not specified; R31.9 Hematuria, unspecified; I10 Essential (primary) hypertension; J45.909 Unspecified asthma, uncomplicated; I25.2 Old myocardial infarction; F17.200 Nicotine dependence, unspecified, uncomplicated; F12.90 Cannabis use, unspecified, uncomplicated; Z86.73 Personal history of transient ischemic attack (TIA), and cerebral infarction without residual deficits
CPT/HCPCS: 71045; 74177; 80053; 81001; 83690; 84703; 85025; 87086; 96374; 96375; 99285; J0696; J1885; J2405; J7030; Q9967